=== PATIENT | female | born 1950 | race Caucasian/White ===

== ENCOUNTER → 2020-09-23 | Outpatient (CLI) | payer MEDICARE ==
[~2020-09-23] MED LIST: ACET325T14 PO; GABA600T7 PO
[2020-09-23 11:01] LABS: MICROSCOPIC NOT IND
[2020-09-23 11:11] LABS: INTERNATIONAL NORMALIZED RATIO 0.92 (0.93-1.1); PROTHROMBIN TIME 9.8 Seconds (9.6-11.5)
[2020-09-23 11:12] LABS: CALCIUM 8.7 mg/dL (8.5-10.1); CHLORIDE 109 mmol/L (98-107); CREATININE 0.93 mg/dL (0.55-1.02)
[2020-09-23 11:13] LABS: BASOPHILS % (AUTO) 1 % (0-1); EOSINOPHILS % (AUTO) 1 % (1-7); LYMPHOCYTES % (AUTO) 27 % (22-44); MEAN CORPUSCULAR HEMOGLOBIN 35.5 pg (27.0-34.8); MEAN CORPUSCULAR HGB CONC 34.6 g/dL (32.4-35.8); MEAN PLATELET VOLUME 7.5 fL (7.4-10.4); MONOCYTES % (AUTO) 7 % (2-9); NEUTROPHILS % (AUTO) 64 % (42-75); PLATELET COUNT 314 x10^3/uL (130-400); RED BLOOD COUNT 4.45 x10^6/uL (3.82-5.3); RED CELL DISTRIBUTION WIDTH 13.1 % (9.6-15.2)
[2020-09-23 11:26] LABS: ANION GAP 3 mmol/L (5-15); MD NO
== END | disposition home or self-care (01) ==
LOC: STAR 09:49
PROVIDERS: ATTEND Neurological Surgery
DX: Z01.810 Encounter for preprocedural cardiovascular examination (principal); Z01.811 Encounter for preprocedural respiratory examination; Z01.812 Encounter for preprocedural laboratory examination; M51.26 Other intervertebral disc displacement, lumbar region; M54.16 Radiculopathy, lumbar region; R79.1 Abnormal coagulation profile; R94.31 Abnormal electrocardiogram [ECG] [EKG]; R82.90 Unspecified abnormal findings in urine; I44.4 Left anterior fascicular block; Z20.822 Contact with and (suspected) exposure to COVID-19
CPT/HCPCS: 80048; 81003; 85025; 85610; 85730; 87635; 93005

== ENCOUNTER 2020-09-27 05:30 | Day surgery (SDC) | payer MEDICARE ==
[~2020-09-27] VITALS: Ht 162.6 cm; Wt 49.0 kg
[2020-09-27] MEDS ORDERED: LACTATED RINGERS 1,000 ML IV SCH (06:00)
[2020-09-27] MEDS ORDERED: CHLORHEXIDINE 15 ML UDC MM ONE (06:00)
[2020-09-27] MEDS ORDERED: VANCOMYCIN 1,000 MG ONE (06:04)
[2020-09-27] MEDS ORDERED: BACITRACIN 50,000 UNIT ONE (06:04)
[2020-09-27] MEDS ORDERED: BUPIVACAINE 0.25% ONE (06:04)
[2020-09-27] MEDS ORDERED: EPINEPHRINE 1 MG/ML, 1ML ONE (06:04)
[2020-09-27] MEDS ORDERED: BUPIVACAINE/PF 0.5% ONE (06:04)
[2020-09-27] MEDS ORDERED: ACET-1600 PO (06:23)
[2020-09-27] MEDS ORDERED: FENTANYL PF 250 MCG/5ML ONE (06:41)
[2020-09-27] MEDS ORDERED: PROPOFOL 100 ML ONE (06:41)
[2020-09-27] MEDS ORDERED: MIDAZOLAM 1 MG/ML, 2ML ONE (06:41)
[2020-09-27] MEDS ORDERED: PROPOFOL 10 MG/ML, 20ML ONE (06:42)
[2020-09-27] MEDS ORDERED: DEXAMETHASONE 4 MG/ML, 5ML ONE (06:42)
[2020-09-27] MEDS ORDERED: ONDANSETRON 2MG/ML, 2ML ONE (07:00)
[2020-09-27] MEDS ORDERED: CEFAZOLIN 1,000 MG ONE ×2 (07:00→07:10)
[2020-09-27] MEDS ORDERED: ROCURONIUM 10MG/ML,5ML ONE (07:00)
[2020-09-27] MEDS ORDERED: OXYcodone 5 MG/5 ML ORAL.SOL UDC PO PRN (07:30)
[2020-09-27] MEDS ORDERED: HYDROmorphone 1 MG/ML, 1ML INJ IVPush PRN (07:30)
[2020-09-27] MEDS ORDERED: PROMETHAZINE 25 MG/ML, 1ML IVPush PRN (07:30)
[2020-09-27] MEDS ORDERED: LORazepam 2 MG/ML, 1ML IVPush PRN (07:30)
[2020-09-27] MEDS ORDERED: METHOCARBAMOL 1,000 MG in DEXTROSE 5% 100 ML IV PRN (07:30)
[2020-09-27] MEDS ORDERED: FENTANYL PF 100 MCG/2ML IV PRN (07:30)
[2020-09-27] MEDS ORDERED: LABETALOL 5MG/ML, 20ML IV PRN (07:30)
[2020-09-27] MEDS ORDERED: hydrALAzine 20 MG/ML, 1ML IV PRN (07:30)
[2020-09-27] MEDS ORDERED: ACETAMINOPHEN 325 MG TABLET PO PRN (07:30)
[2020-09-27] MEDS ORDERED: ONDANSETRON 2MG/ML, 2ML IVPush PRN ×2 (07:30→09:30)
[2020-09-27] MEDS ORDERED: BUPIVACAINE LIPOSOME/PF 10ML INFIL ONE (08:15)
[2020-09-27] MEDS ORDERED: EPHEDRINE 50 MG/ML, 1ML ONE (08:18)
[2020-09-27] MEDS ORDERED: HYDR-3248 PO (09:25)
[2020-09-27] MEDS ORDERED: METH-640 PO (09:25)
[2020-09-27] MEDS ORDERED: morphine SULFATE 10 MG/ML, 1ML IVPush PRN (09:30)
[2020-09-27] MEDS ORDERED: HYDROcodone/APAP 10/325 MG TABLET PO PRN (09:30)
[2020-09-27] MEDS ORDERED: METHOCARBAMOL 750 MG TABLET PO PRN (09:30)
[2020-09-27] MEDS ORDERED: PHARMACY MAY ADJ FOR RENAL FX MC PRN (09:30)
[2020-09-27] MEDS ORDERED: HYDROcodone/APAP 5/325 TABLET PO PRN (09:30)
[2020-09-27] MEDS ORDERED: D5%-0.9% NACL+KCL 20MEQ 1,000 ML IV SCH (09:30)
[2020-09-27] MEDS ORDERED: OXYcodone 5 MG/5 ML ORAL.SOL UDC ONE (09:35)
[2020-09-27] MEDS ORDERED: HYDROmorphone 1 MG/ML, 1ML INJ ONE (09:35)
[2020-09-27] MEDS ORDERED: FENTANYL PF 100 MCG/2ML ONE (09:35)
[2020-09-27] MEDS ORDERED: PROMETHAZINE 25 MG/ML, 1ML ONE (09:42)
[2020-09-27] MEDS ORDERED: SODIUM CHLORIDE FLUSH 10ML SYR IVF SCH (21:00)
[2020-09-27] MEDS ORDERED: GABAPENTIN 400 MG CAPSULE PO SCH (21:00)
== END 2020-09-27 14:50 | disposition home or self-care (01) ==
LOC: OUT 05:30 → UNDOADMOB 09:12 → ORIP 09:12
PROVIDERS: ATTEND Neurological Surgery
DX: M48.07 Spinal stenosis, lumbosacral region (principal); M51.17 Intervertebral disc disorders with radiculopathy, lumbosacral region; F17.210 Nicotine dependence, cigarettes, uncomplicated; Z79.899 Other long term (current) drug therapy; Z98.890 Other specified postprocedural states
CPT/HCPCS: 63042; 63056; 63057; 72100; C1781; J0171; J0690; J1100; J1170; J2250; J2405; J2550; J2704; J2800; J3010; J3370; J7120